=== PATIENT | female | born 1975 | race American Indian/Alaskan Native ===

== ENCOUNTER 2016-08-26 06:09 | Emergency (ER) | payer SELFPAY ==
[2016-08-26 07:06] VITALS: BP 139/75
--- NOTE | 2016-08-26 07:21 | EDM.PDOC ---
ED HPI GI/ABDOMINAL - General Chief Complaint: Abdominal Pain Stated Complaint: GALLBLADDER ATTACK Time Seen by Provider: 08/26/16 07:00 Source of Information: Reports: Patient, Old records, RN, RN notes reviewed History Limitations: Reports: No limitations - History of Present Illness INITIAL COMMENTS - FREE TEXT/NARRATIVE: Arrives from home by POV with c/o upper abdominal pain that began last night after eating popcorn and drinking a coke. Pt states she has had this before and she believes it is caused by her gallbladder. Pt states the pain usually begins after she eats "the wrong thing", although she isn't sure what specific foods trigger the pain until it occurs. Admits to nausea. Denies vomiting, diarrhea, constipation, blood in stool, dark, black, or melanotic stool. Denies any unintended weight gain or loss. Records show pt has had evaluations of abdominal pain in the past including a normal gallbladder by US. She has not followed up in clinic for further evaluation or GI referral. Pt states that she usually gets some relief by taking OTC Ranitidine, but it isn't helping this time. Symptom Onset Date: 08/25/16 Timing/Duration: Reports: Constant Location: RUQ (and epigastric) Quality: Reports: ache Severity: moderate Improves with: Reports: other (nothing) Worsens with: Reports: other (eating) Context: Denies: sick contact, bad/questionable food, out of country travel, recent surgery, recent trauma, lifting, activity/exercise Associated Symptoms (-Female): Reports: denies other symptoms Treatments ART CONSULTANT: Reports: Other medication(s) (OTC Zantac) - Related Data Allergies/ADRs: Allergies Allergy/AdvReac Type Severity Reaction Status Date / Time Penicillins Allergy Rash Verified 05/07/15 12:33 Home Meds: Home Meds Ibuprofen [Motrin] 800 mg PO TID PRN 08/01/13 [History] Past Medical History - Past Health History Medical/Surgical History: Denies Medical/Surgical History Gastrointestinal History: Reports: Other (see below) (recurrent upper abdominal pain) - Past Surgical History GI Surgical History: Reports: Appendectomy Social & Family History - Family History Family Medical History: Noncontributory - Tobacco Use Smoking Status *Q: Current Every Day Smoker Years of Tobacco use: 22 Packs/Tins Daily: 0.5 Second Hand Smoke Exposure: Yes - Caffeine Use Caffeine Use: Reports: Coffee, Soda - Alcohol Use Days Per Week of Alcohol Use: 0 - Recreational Drug Use Recreational Drug Use: No - Living Situation & Occupation Living situation: Reports: with significant other, with family Occupation: unemployed ED ROS GENERAL - Review of Systems Review Of Systems: ROS reveals no pertinent complaints other than HPI. ED EXAM, GI/ABD - Physical Exam Exam: See Below Exam Limited By: No limitations General Appearance: alert, WD/WN, no apparent distress Eyes: bilateral: normal appearance Ears: normal external exam, hearing grossly normal Nose: normal inspection, normal mucosa, no blood Throat/Mouth: Normal inspection, Normal lips, Normal teeth, Normal gums, Normal oropharynx, Normal voice, No airway compromise Head: atraumatic, normocephalic Neck: normal inspection, supple, non-tender, full range of motion. No: lymphadenopathy (L), lymphadenopathy (R) Respiratory/Chest: no respiratory distress, lungs clear, normal breath sounds, no accessory muscle use, chest non-tender Cardiovascular: normal peripheral pulses, regular rate, rhythm, no edema, no gallop, no JVD, no murmur, no rub GI/Abdominal: normal bowel sounds, soft, no organomegaly, no distention, no abnormal bruit, tenderness (mild RUQ and epigastric tenderness to deep palpation ). No: guarding, rebound, rigidity Back Exam: normal inspection, full range of motion. No: CVA tenderness (L), CVA tenderness (R) Extremities: normal inspection Neurological: alert, oriented, CN II-XII intact, normal cognition, normal gait, no motor/sensory deficits Psychiatric: normal affect, normal mood Skin Exam: Warm, Dry, Intact, Normal color, No rash Course - Vital Signs Last Recorded V/S: Last Vital Signs Temp 36.8 C 08/26/16 07:05 Pulse 73 08/26/16 07:05 Resp 16 08/26/16 07:05 BP 139/75 08/26/16 07:05 Pulse Ox 100 08/26/16 07:05 - Orders/Labs/Meds Labs: Laboratory Tests 08/26/16 08/26/16 08/26/16 Range/Units 07:34 07:34 07:34 WBC (5.0-10.0) 10^3/uL RBC (4.2-5.4) 10^6/uL Hgb (12.0-16.0) g/dL Hct (37.0-47.0) % MCV (80-100) fL MCH (27.0-34.0) pg MCHC (33.0-35.0) g/dL Plt Count (150-450) 10^3/uL Neut % (Auto) (42.2-75.2) % Lymph % (Auto) (20.5-50.1) % [place] % (Auto) (2-8) % Eos % (Auto) (1.0-3.0) % Baso % (Auto) (0.0-1.0) % Sodium (135-145) mmol/L Potassium (3.6-5.0) mmol/L Chloride (101-111) mmol/L Carbon Dioxide (21.0-31.0) mmol/L Anion Gap BUN (7-18) mg/dL Creatinine (0.6-1.3) mg/dL Est Cr Clr Drug Dosing mL/min Estimated GFR (MDRD) BUN/Creatinine Ratio Glucose (74-105) mg/dL Calcium (8.4-10.2) mg/dl Total Bilirubin (0.2-1.0) mg/dL AST (10-42) IU/L ALT (10-60) IU/L Alkaline Phosphatase (42-121) IU/L Total Protein (6.7-8.2) g/dl Albumin (3.2-5.5) g/dl Globulin Albumin/Globulin Ratio Amylase (28-100) U/L Lipase (22-51) U/L Urine Color Yellow (YELLOW) Urine Appearance Clear (CLEAR) Urine pH 6.0 (5.0-9.0) Ur Specific [place] 1.015 (1.005-1.030) Urine Protein Negative (NEGATIVE) Urine Glucose (UA) Negative (NEGATIVE) Urine Ketones Negative (NEGATIVE) Urine Occult Blood Trace-intact H (NEGATIVE) Urine Nitrite Negative (NEGATIVE) Urine Bilirubin Negative (NEGATIVE) Urine Urobilinogen 0.2 (0.2-1.0) mg/dL Ur Leukocyte Esterase Negative (NEGATIVE) Urine RBC Not seen /HPF Urine WBC 0-5 (0-5/HPF) /HPF Ur Epithelial Cells Occasional /HPF Urine Bacteria Moderate H (0-FEW/HPF) /HPF Urine HCG, Qual Negative Urine Opiates Screen Positive H (NEGATIVE) Ur Oxycodone Screen Positive H (NEGATIVE) Urine Methadone Screen Negative (NEGATIVE) Ur Barbiturates Screen Negative (NEGATIVE) U Tricyclic Antidepress Negative (NEGATIVE) Ur Phencyclidine Scrn Negative (NEGATIVE) Ur Amphetamine Screen Positive H (NEGATIVE) U Methamphetamines Scrn Positive H (NEGATIVE) Urine MDMA Screen Negative (NEGATIVE) U Benzodiazepines Scrn Negative (NEGATIVE) Urine Cocaine Screen Negative (NEGATIVE) U Marijuana (THC) Screen Positive H (NEGATIVE) 08/26/16 08/26/16 Range/Units 07:35 07:35 WBC 8.5 (5.0-10.0) 10^3/uL RBC 4.52 (4.2-5.4) 10^6/uL Hgb 9.9 L (12.0-16.0) g/dL Hct 32.7 L (37.0-47.0) % MCV 72.3 L (80-100) fL MCH 21.9 L (27.0-34.0) pg MCHC 30.3 L (33.0-35.0) g/dL Plt Count 522 H (150-450) 10^3/uL Neut % (Auto) 78.1 H (42.2-75.2) % Lymph % (Auto) 12.5 L (20.5-50.1) % [place] % (Auto) 6.2 (2-8) % Eos % (Auto) 3.0 (1.0-3.0) % Baso % (Auto) 0.2 (0.0-1.0) % Sodium 141 (135-145) mmol/L Potassium 3.6 (3.6-5.0) mmol/L Chloride 111 (101-111) mmol/L Carbon Dioxide 21.0 (21.0-31.0) mmol/L Anion Gap 12.6 BUN 10 (7-18) mg/dL Creatinine 0.7 (0.6-1.3) mg/dL Est Cr Clr Drug Dosing 76.74 mL/min Estimated GFR (MDRD) > 60 BUN/Creatinine Ratio 14.28 Glucose 94 (74-105) mg/dL Calcium 8.7 (8.4-10.2) mg/dl Total Bilirubin 0.3 (0.2-1.0) mg/dL AST 32 (10-42) IU/L ALT 21 (10-60) IU/L Alkaline Phosphatase 85 (42-121) IU/L Total Protein 7.8 (6.7-8.2) g/dl Albumin 3.9 (3.2-5.5) g/dl Globulin 3.9 Albumin/Globulin Ratio 1.00 Amylase 47 (28-100) U/L Lipase 20 L (22-51) U/L Urine Color (YELLOW) Urine Appearance (CLEAR) Urine pH (5.0-9.0) Ur Specific [place] (1.005-1.030) Urine Protein (NEGATIVE) Urine Glucose (UA) (NEGATIVE) Urine Ketones (NEGATIVE) Urine Occult Blood (NEGATIVE) Urine Nitrite (NEGATIVE) Urine Bilirubin (NEGATIVE) Urine Urobilinogen (0.2-1.0) mg/dL Ur Leukocyte Esterase (NEGATIVE) Urine RBC /HPF Urine WBC (0-5/HPF) /HPF Ur Epithelial Cells /HPF Urine Bacteria (0-FEW/HPF) /HPF Urine HCG, Qual Urine Opiates Screen (NEGATIVE) Ur Oxycodone Screen (NEGATIVE) Urine Methadone Screen (NEGATIVE) Ur Barbiturates Screen (NEGATIVE) U Tricyclic Antidepress (NEGATIVE) Ur Phencyclidine Scrn (NEGATIVE) Ur Amphetamine Screen (NEGATIVE) U Methamphetamines Scrn (NEGATIVE) Urine MDMA Screen (NEGATIVE) U Benzodiazepines Scrn (NEGATIVE) Urine Cocaine Screen (NEGATIVE) U Marijuana (THC) Screen (NEGATIVE) Meds: Medications Discontinued Medications Generic Name Dose Route Start Last Admin Trade Name Freq PRN Reason Stop Dose Admin Ketorolac Tromethamine 60 mg 08/26/16 07:31 08/26/16 07:45 Toradol IM 08/26/16 07:32 60 mg ONETIME ONE Administration Promethazine HCl 25 mg 08/26/16 07:30 08/26/16 07:42 Phenergan IM 08/26/16 07:31 25 mg ONETIME ONE Administration - Radiology Interpretation Free Text/Narrative:: Reviewed 05/07/15 abdominal US report. Departure - Departure Time of Disposition: 08:31 Disposition: Home, Self-Care 01 Condition: good Clinical Impression: Abdominal pain Qualifiers: Abdominal location: right upper quadrant Qualified Code(s): R10.11 - Right upper quadrant pain Instructions: Abdominal Pain, Adult, [id number], Food Choices for Peptic Ulcer Disease Forms: ED Department Discharge Additional Instructions: Rx: Carafate 1g, One tablet by mouth four times a day 30 minutes before meals and at bedtime for 10 days. Rx: Omeprazole 20mg, One tablet by mouth once every day for one month. Follow up at [facility] with Dr. Clarke for evaluation and consideration of an endoscopy of your stomach (upper GI endoscopy).
[2016-08-26] MEDS ORDERED: Promethazine 25 MG/ML SDV IM ONE (07:30)
[2016-08-26] MEDS ORDERED: Ketorolac 30 MG/ML SDV IM ONE (07:31)
[2016-08-26 08:04] LABS: CHLORIDE,CL 111 mmol/L (101-111); SODIUM,NA 141 mmol/L (135-145)
== END 2016-08-26 08:42 | disposition home or self-care (01) ==
LOC: DL.ED 06:09
DX: R10.11 Right upper quadrant pain (principal); R10.13 Epigastric pain; F17.210 Nicotine dependence, cigarettes, uncomplicated; Z88.0 Allergy status to penicillin; Z90.49 Acquired absence of other specified parts of digestive tract
CPT/HCPCS: 36415; 80053; 80305; 81001; 81025; 82150; 83690; 85025; 96372; 99284; J1885; J2550; 99283

== ENCOUNTER 2019-10-29 21:15 | Emergency (ER) | payer SELFPAY ==
[2019-10-29 21:16] VITALS: BP 150/88; PULSE 99
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
== END 2019-10-29 21:23 | disposition home or self-care (01) ==
LOC: DL.ED 21:15
DX: R40.1 Stupor (principal); T40.2X5A Adverse effect of other opioids, initial encounter; Z88.0 Allergy status to penicillin
CPT/HCPCS: 99283

== ENCOUNTER 2020-02-04 11:15 | Emergency (ER) | payer OTHER ==
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
[2020-02-04 11:44] VITALS: BP 151/92; PULSE 92
[2020-02-04 12:06] LABS: ANION GAP 13.9 mEq/L (7-13); CHLORIDE,CL 106 mmol/L (98-107); SODIUM,NA 141 mmol/L (136-145)
[2020-02-04 12:09] LABS: ACETAMINOPHEN 0 ug/mL (10-30 (Therapeutic))
== END 2020-02-04 13:05 | disposition home or self-care (01) ==
LOC: DL.ED 11:15
DX: F15.159 Other stimulant abuse with stimulant-induced psychotic disorder, unspecified (principal); Z88.0 Allergy status to penicillin; Z90.49 Acquired absence of other specified parts of digestive tract
CPT/HCPCS: 36415; 80053; 80305-QW; 80307; 81001; 81025; 85025; 99283; 99285

== ENCOUNTER 2020-04-14 11:23 | Emergency (ER) | payer OTHER ==
[2020-04-14 11:35] VITALS: BP 125/86; PULSE 78
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
[2020-04-14 12:35] LABS: ANION GAP 14.3 mEq/L (7-13); CHLORIDE,CL 103 mmol/L (98-107); SODIUM,NA 137 mmol/L (136-145)
[2020-04-14] MEDS ORDERED: cefTRIAXone 250 MG, Lidocaine 1% 0.9 ML IM ONE ×2 (12:43)
[2020-04-14] MEDS ORDERED: Azithromycin 250 MG Tab PO ONE (12:43)
[2020-04-17 14:46] LABS: C.TRACHOMATIS BY TMA Negative (Negative); N.GONORRHOEAE BY TMA Negative (Negative)
== END 2020-04-14 13:40 ==
LOC: DL.ED 11:23
DX: T74.21XA Adult sexual abuse, confirmed, initial encounter (principal); F17.210 Nicotine dependence, cigarettes, uncomplicated; Z88.0 Allergy status to penicillin
CPT/HCPCS: 36415; 80053; 80305-QW; 81001; 81025; 85025; 87086; 87088; 87186; 87491; 87591; 96372; 99285; A9270-GY; J0696; J2001

== ENCOUNTER 2020-05-09 18:20 | Emergency (ER) | payer OTHER | END 2020-05-09 19:31 | disposition left against medical advice (07) | LOC: DL.ED 18:20 | DX: Z53.21 Procedure and treatment not carried out due to patient leaving prior to being seen by health care provider (principal) ==

== ENCOUNTER 2020-05-27 10:09 | Emergency (ER) | payer OTHER ==
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
[2020-05-27] MEDS ORDERED: Sodium Chloride 0.9% 10 ML Syringe FLUSH PRN (10:14)
[2020-05-27] MEDS ORDERED: Sodium Chloride 0.9% 1,000 ML IV ONE ×2 (10:14→11:34)
[2020-05-27] MEDS ORDERED: Naloxone 2 MG/2 ML Syringe IVPUSH ONE (10:15)
[2020-05-27 10:22] VITALS: BP 121/102; PULSE 110
[2020-05-27 10:54] LABS: ANION GAP 17.2 mEq/L (7-13); CHLORIDE,CL 99 mmol/L (98-107); SODIUM,NA 138 mmol/L (136-145)
[2020-05-27 12:04] LABS: AMPHETAMINES,URINE POSITIVE (NEGATIVE); BARBITURATES,URINE NEGATIVE (NEGATIVE); BENZODIAZEPINE,URINE NEGATIVE (NEGATIVE); MDMA (ECSTASY), URINE NEGATIVE (NEGATIVE); METHADONE,URINE NEGATIVE (NEGATIVE); METHAMPHETAMINES,URINE POSITIVE (NEGATIVE); OPIATES,URINE NEGATIVE (NEGATIVE); OXYCODONE,URINE NEGATIVE (NEGATIVE); PHENCYCLIDINE,URINE NEGATIVE (NEGATIVE); TCA,URINE POSITIVE (NEGATIVE)
== END 2020-05-27 12:53 | disposition home or self-care (01) ==
LOC: DL.ED 10:09
DX: T40.411A Poisoning by fentanyl or fentanyl analogs, accidental (unintentional), initial encounter (principal); F15.10 Other stimulant abuse, uncomplicated; R73.9 Hyperglycemia, unspecified; Z88.0 Allergy status to penicillin
CPT/HCPCS: 36415; 80053; 80305; 80307; 81001; 81025; 85025; 96374; 99284; J2310; J7030